=== PATIENT | male | born 1965 | race Caucasian/White ===

== ENCOUNTER → 2020-01-12 | Outpatient (CLI) | payer BC, OTHER ==
[~2020-01-12] MED LIST: ALLOPURINOL 10100 M3 PO; ASA81BEC PO; COZAAR 25 MG TA25 M2 PO; CRESTOR40 MG PO; HYDROCHLOROTHIA25 M2 PO; TOPROL XL50 MG PO
== END ==
LOC: SJCVCIMAG 08:56
PROVIDERS: ATTEND Internal Medicine Cardiovascular Disease
DX: I08.8 Other rheumatic multiple valve diseases (principal); E66.9 Obesity, unspecified; I44.0 Atrioventricular block, first degree; I15.9 Secondary hypertension, unspecified

== ENCOUNTER → 2020-01-13 | Outpatient (CLI) | payer BC, OTHER | LOC: SJCVCIMAG 07:58 | PROVIDERS: ATTEND Internal Medicine Cardiovascular Disease | DX: R07.9 Chest pain, unspecified (principal); I44.0 Atrioventricular block, first degree; I10 Essential (primary) hypertension; E66.9 Obesity, unspecified; E78.5 Hyperlipidemia, unspecified; Z79.899 Other long term (current) drug therapy ==

== ENCOUNTER → 2020-01-28 | Outpatient (CLI) | payer BC, OTHER ==
[~2020-01-28] VITALS: Ht 190.5 cm; Wt 143.0 kg
[2020-01-28 07:22] VITALS: BP 112/75
--- NOTE | 2020-01-28 09:07 | CATHLAB ---
[facility] [place] [address] INVASIVE PROCEDURE REPORT Name: BRYSON MARTÍNEZ Room #: REG MALATHI Velez.#: [id number] Admission: 01/28/20 Attend Phys: Torres Cat MD, Discharge: Date of : 65 Report #: [id number] THIS REPORT FOR: cc: CLIFTON LUND JESSICA RNP Lundgren, Craig H. MD [facility] ~ APPROVED REPORT Study performed: 01/28/2020 07:56:59 Patient Details Patient Status: Out-Patient Room #: The patient is a 54 year-old male Event Personnel Torres Cat Dry Cell Tester, Namita Vernon RTRai, LINEMAN A CLASS Monitor, Hermelinda Ward RN RN, Ani Mccabe Procedures Performed Art Access - R femoral artery* Left Heart Cath w/or w/o Coronaries [id number] [facility] [id number] Initial Mod Sed Same Phys/QHP Gr5y 599498 Hemostasis w/ Mynx Indication Positive stress test Procedure Narrative The patient was brought electively to the Cardiac Catheterization Laboratory and was prepped and draped in a sterile manner. The Right Groin^ was infiltrated with 1% Lidocaine subcutaneous anesthesia. A PINNACLE 6FR Sheath #[id number] sheath was inserted into the RFA^. Coronary angiography was performed using coronary diagnostic catheters. The right coronary system was accessed and visualized with a JR4 catheter. The left coronary system was accessed and visualized with a JL4 catheter. The left ventricle was accessed and visualized with a angled pigtail catheter. Left ventricular/Aortic Valve gradient assessed via catheter pullback. Left ventriculogram was performed in 30 degree projection. Closure device was deployed with a 6 Fr MYNXGRIP 6/7F #[id number]. The patient tolerated the procedure well and there were no complications associated with the procedure. There was no hematoma. Intraoperative Conscious Sedation Sedation start time: 08:03 Case end Time: [facility] [address] [place] [address] INVASIVE PROCEDURE REPORT Name: BRYSON MARTÍNEZ Room #: REG Kaylie#: [id number] Admission: 01/28/20 Attend Phys: Torres Cat, Discharge: Date of : 65 Report #: [id number] 08:32 Fentanyl 75 mcg Versed 2 mg Fluoro Time: 2.90 minutes Dose: DAP 7859.00 cGycm2 1100 mGy Contrast Type and Amount: Omnipaque 95 ml Coronary Angiography The patient's coronary anatomy is right dominant. Diagnostic Cath Left Main Normal left main LAD Normal left anterior descending Diagonal 1 Normal first diagonal branch Circumflex Moderate size, nondominant circumflex giving rise to a distally arising single marginal branch OM1 Normal small first marginal vessel Right Coronary Dominant right coronary with mild proximal plaquing 10-20% R PDA Normal posterior descending RPLV Normal posterior lateral branch Ramus Moderate size, bifurcating ramus branch, angiographically normal Left Ventriculography The left ventricle is normal in size with normal contractility. The left ventricular ejection fraction is estimated to be 55-60%. Left ventricular wall motion abnormalities are not present. There is no mitral insufficiency. Hemodynamics The aortic pressure is 123/71 mmHg with a mean of 91 mmHg. The left ventricular pressure is 120/10 mmHg with a mean of mmHg. The left ventricular end diastolic pressure is 23 mmHg. Conclusion 1. Normal global and regional left ventricular systolic function. Ejection fraction 60%. 2. Normal left main 3. Minimal scattered atherosclerotic plaquing. Right coronary dominant circulation [facility] [address] [place] [address] INVASIVE PROCEDURE REPORT Name: JENARO MARTÍNEZALL [facility] #: [facility] [id number] Admission: 01/28/20 Attend Phys: Torres Cat, Discharge: Date of : 65 Report #: [id number] Recommendations Aggressive Medical Therapy <ELECTRONICALLY SIGNED> By: Torres Cat MD, [facility] 01/28/20905 5 5 Torres Cat MD, FACC /INF
== END | disposition home or self-care (01) ==
LOC: CATH 06:47
PROVIDERS: ATTEND Internal Medicine
DX: R94.39 Abnormal result of other cardiovascular function study (principal); I25.10 Atherosclerotic heart disease of native coronary artery without angina pectoris; I10 Essential (primary) hypertension; E78.5 Hyperlipidemia, unspecified; K21.9 Gastro-esophageal reflux disease without esophagitis; M10.9 Gout, unspecified; E66.09 Other obesity due to excess calories; Z98.890 Other specified postprocedural states; Z79.899 Other long term (current) drug therapy; Z79.82 Long term (current) use of aspirin; Z11.59 Encounter for screening for other viral diseases